=== PATIENT | female | born 2000 | race Caucasian/White ===

== ENCOUNTER 2023-09-17 16:19 | Emergency (ER) | payer BC, SELFPAY ==
--- NOTE | ~2023-09-17 | CT_ITS ---
EXAMINATION: CT abdomen pelvis w con DATE: 09/17/2023 18:55 INDICATION: RLQ Abdominal pain x 2mo, worse x 3wks TECHNIQUE: Computed tomography (CT) of the abdomen and pelvis was performed with 100 mL Omnipaque-350 intravenous contrast. Automated exposure control and iterative reconstruction technique were employe d. The dose-length product was 230.07 mGy-cm. COMPARISON: None. FINDINGS: Lower thorax: Unremarkable Liver: Normal. Biliary/Gallbladder: Gallbladder is normal. No bile duct dilation. Pancreas: No mass or duct dilation. Spleen: Normal. Adrenals:No mass. Kidneys: No suspicious mass, obstructing stone, or hydronephrosis. GI tract: Moderate distal esophageal and mild gastric wall edema No small or large bowel dilation. No rmal appendix. Mesentery/Peritoneum: No ascites, mass, or free air. Retroperitoneum: No mass. Pelvis: Pelvic organs are within normal limits. IUD, in good position. Physiologic deep pelvic fluid. Soft Tissues: Soft tissues and body wall unremarkable. Bones: No acute osseous finding. IMPRESSION: Moderate esophagitis and mild gastritis. No other acute abdominopelvic process detected. Reviewed, dictated and finalized at location K.
[2023-09-17 16:22] VITALS: BP 140/90; PULSE 99; RESP 20; TEMP 36.5; O2SAT 100
[2023-09-17 17:35] LABS: Basophils Absolute Auto 0.04 K/mm3 (0.00-0.10); Basophils Percent Auto 0.6 % (0.0-1.0); Eosinophils Absolute Auto 0.03 K/mm3 (0.02-0.50); Eosinophils Percent Auto 0.4 % (1.0-6.0); Hemoglobin 13.9 g/dL (12.0-15.0); Immature Granulocyte Absolute 0.02 K/mm3 (0.00-0.00); Immature Granulocyte Percent A 0.3 % (0.0-0.0); Lymphocytes Absolute Auto 2.61 K/mm3 (1.10-4.50); Lymphocytes Percent Auto 38.9 % (18.0-42.0); Mean Corpuscular HGB Conc 33.1 g/dL (32-36); Mean Corpuscular Hemoglobin 29.4 pg (27.0-31.0); Mean Platelet Volume 10.7 fl (9.2-11.8); Monocytes Absolute Auto 0.38 K/mm3 (0.10-0.90); Monocytes Percent Auto 5.7 % (2.0-11.0); Neutrophils Absolute Auto 3.63 K/mm3 (1.70-7.20); Neutrophils Percent Auto 54.1 % (50.0-70.0); Platelet Count Result 241 K/mm3 (150-420); Red Blood Count 4.72 M/mm3 (4.20-5.40); Red Cell Distribution Width 11.3 % (11.6-14.4); White Blood Count 6.7 K/mm3 (4.8-10.8)
[2023-09-17 17:36] LABS: Appearance Urine Clear (Clear); Bilirubin Urine Negative (Negative); Blood Urine Negative (Negative); Color Urine Yellow (Yellow); Glucose Urine UA Negative (Negative); Ketones Urine Negative (Negative); Leukocyte Esterase Ur Negative LEU/UL (Negative); Nitrate Urine Negative (Negative); Protein Urine Negative (Negative); Urobilinogen Urine 0.2 mg/dL (0.2-1.0); pH Urine 6.5 (5.0-8.0)
[2023-09-17 17:41] LABS: Add Urine Microscopic? NO
[2023-09-17 17:42] LABS: Pregnancy On Board Control Positive; Urine Pregnancy Test Negative
[2023-09-17 17:50] LABS: Alanine Aminotransferase 16 U/L (14-59); Albumin Level 4.4 g/dL (3.4-5.0); Alkaline Phosphatase 38 U/L (46-116); Anion Gap 12 mmol/L (4-12); Aspartate Amino Transferase 13 U/L (15-37); Bilirubin,Total 0.5 mg/dL (0.00-1.00); Blood Urea Nitrogen 10 mg/dL (7-18); Calcium 9.4 mg/dL (8.5-10.1); Carbon Dioxide 26 mmol/L (21-32); Chloride 103 mmol/L (98-108); Estimated CRCL calculation 78 ml/min; Estimated Glomerular Filt Rate > 60; Glucose 90 mg/dL (70-99); Osmolality Calculated 291 mOsm/kg (285-295); Potassium 3.7 mmol/L (3.5-5.1); Sodium 141 mmol/L (136-145); Total Protein 7.4 g/dL (6.4-8.2)
[2023-09-17] MEDS: SODIUM CHLORIDE 0.9% IV 1,000 ML 999 ML IV CONT (18:26)
[2023-09-17 19:08] VITALS: BP 127/80; PULSE 101; RESP 20; TEMP 36.8; O2SAT 100
--- NOTE | 2023-09-17 19:10 | PC.NURSE ---
report to yair hirsch. all questions answered.
[2023-09-17 19:16] VITALS: BP 130/78; PULSE 68; RESP 18; TEMP 36.6; O2SAT 100
--- NOTE | 2023-09-17 19:24 | PC.NURSE ---
PT IS SITTING UP ON STRETCHER AWAITING PELVIC EXAM AND CT RESULTS. PT HAS BEEN UPDATED ON STATUS. PT DENIES ANY NEEDS OR COMPLAINTS. PELVIC TRAY IS SET UP AT BEDSIDE. WILL CONTINUE TO MONITOR.
--- NOTE | 2023-09-17 19:36 | ED.FEMALEGU ---
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 Patient also complaining of lower abdominal pain with no dysuria no hematuria patient states that she has no high risk sexual activity not concerned for STDs. There is no fever chills no flank pain no nausea vomiting no chest pain or shortness of breath. MD elicited complaint: vaginal discharge and pelvic pain Related Data Allergies Allergy/AdvReac Type Severity Reaction Status Date / Time No Known Allergies Allergy Verified 09/17/23 16:59 Review of Systems Review of Systems: All systems reviewed & are unremarkable except as noted in HPI and below PMFSH Past Medical History Medical History Bacterial vaginosis Exam Const: General: healthy appearing Nutritional Appearance: well nourished Orientation/consciousness: patient oriented x3 Limitations: no limitations Resp: Effort & Inspection: normal respiratory effort Auscultation: clear to auscultation bilaterally Cardio: Rate: regular rate Rhythm: regular rhythm : Speculum Exam - Vagina: normal appearance of the vagina and abnormal vaginal discharge Back/Spine/Pelvis: Back: no CVA tenderness Skin: General skin exam: normal color Rashes: no rashes Neuro: General: patient oriented x3 and moves all extremities Course Course Emergency Course: patient has CT scan which was unremarkable lab work performed showed no acute abnormalities patient had a vaginal exam which showed some white frothy discharge with a an odor. Consistent with bacterial vaginosis and will send prescription medication. Did a vaginal exam with some vaginal culture. Vital Signs Vital signs: Vital Signs Temperature 36.5 C 09/17/23 16:22 Pulse Rate 99 09/17/23 16:22 Respiratory Rate 20 09/17/23 16:22 Blood Pressure 140/90 09/17/23 16:22 Pulse Oximetry 100 09/17/23 16:22 Oxygen Delivery Room Air 09/17/23 16:22 Temperature 36.8 C 09/17/23 19:08 Pulse Rate 101 H 09/17/23 19:08 Respiratory Rate 20 09/17/23 19:08 Blood Pressure 127/80 09/17/23 19:08 Pulse Oximetry 100 09/17/23 19:08 Oxygen Delivery Room Air 09/17/23 19:08 MDM - Female Genitourinary Lab Data 09/17/23 17:29 09/17/23 17:29 Labs: Lab Results 09/17/23 Range/Units 17:29 WBC 6.7 (4.8-10.8) K/mm3 RBC 4.72 (4.20-5.40) M/mm3 Hgb 13.9 (12.0-15.0) g/dL Hct 42.0 (35.0-49.0) % MCV 89.0 (78.0-102.0) fL MCH 29.4 (27.0-31.0) pg MCHC 33.1 (32-36) g/dL RDW 11.3 L (11.6-14.4) % Plt Count 241 (150-420) K/mm3 MPV 10.7 (9.2-11.8) fl Immature Gran % (Auto) 0.3 H (0.0-0.0) % Neut % (Auto) 54.1 (50.0-70.0) % Lymph % (Auto) 38.9 (18.0-42.0) % [place] % (Auto) 5.7 (2.0-11.0) % Eos % (Auto) 0.4 L (1.0-6.0) % Baso % (Auto) 0.6 (0.0-1.0) % Lymph # (Auto) 2.61 (1.10-4.50) K/mm3 [place] # (Auto) 0.38 (0.10-0.90) K/mm3 Eos # (Auto) 0.03 (0.02-0.50) K/mm3 Baso # (Auto) 0.04 (0.00-0.10) K/mm3 Abs Immat Gran (auto) 0.02 H (0.00-0.00) K/mm3 Absolute Neuts (auto) 3.63 (1.70-7.20) K/mm3 Absolute Nucleated RBC 0.00 (0.00-0.00) K/mm3 Nucleated RBC % 0.0 (0-0.0) % Sodium 141 (136-145) mmol/L Potassium 3.7 (3.5-5.1) mmol/L Chloride 103 (98-108) mmol/L Carbon Dioxide 26 (21-32) mmol/L Anion Gap 12 (4-12) mmol/L BUN 10 (7-18) mg/dL Creatinine 0.86 (0.55-1.02) mg/dL Estim Creat Clear Calc 78 ml/min Estimated GFR > 60 (59 - ) Glucose 90 (70-
--- NOTE | 2023-09-17 19:40 | PC.NURSE ---
PELVIC EXAM COMPLETED. SWABS OBTAINED AND SENT TO LAB. PT TOLERATED WELL.
[2023-09-21 05:02] LABS: Bacterial Vaginosis Negative (Negative)
== END 2023-09-17 19:50 | disposition home or self-care (01) ==
PROVIDERS: Emergency Provider Emergency Medicine
DX: N76.0 Acute vaginitis (principal)
CPT/HCPCS: 36415; 74177; 80053; 81003; 81025; 81513; 85025; 87070; 87205; 96360; 99284; J7030; Q9967